=== PATIENT | female | born 1985 ===

== ENCOUNTER 2018-09-21 12:09 | Inpatient (IN) | payer OTHER ==
[~2018-09-21] VITALS: Ht 175.3 cm; Wt 133.4 kg
[2018-10-08] MEDS ORDERED: PRENATAL VITAM1 EAC2 (23:14)
== END 2018-10-12 14:02 | DRG 788 ==
LOC: OB/GYN 10-03 14:45 → LDR 10-08 22:54 → OB/GYN 10-08 22:54 → O/R 10-09 02:17 → OB/GYN 10-09 04:12
PROVIDERS: ADMIT Obstetrics & Gynecology
PROC: 4A1HXCZ Monitoring of Products of Conception, Cardiac Rate, External Approach (ICD-10-PCS; 2018-10-09)
PROC: 4A033R1 Measurement of Arterial Saturation, Peripheral, Percutaneous Approach (ICD-10-PCS; 2018-10-09)
PROC: 10D00Z1 Extraction of Products of Conception, Low, Open Approach (ICD-10-PCS; principal; 2018-10-09 08:30)
DX: O76 Abnormality in fetal heart rate and rhythm complicating labor and delivery (principal); Z3A.39 39 weeks gestation of pregnancy; Z37.0 Single live birth

== ENCOUNTER 2018-10-02 11:00 | Outpatient (CLI) | payer OTHER | END 2018-10-02 13:30 | disposition home or self-care (01) | LOC: OBS/DEL 11:00 | DX: O47.1 False labor at or after 37 completed weeks of gestation (principal); Z34.83 Encounter for supervision of other normal pregnancy, third trimester ==

== ENCOUNTER → 2018-10-08 | Outpatient (CLI) | payer OTHER ==
[~2018-10-08] MED LIST: PRENATAL VITAM1 EAC2
== END | disposition still patient (30) ==
LOC: OBS/DEL 19:49
DX: O47.1 False labor at or after 37 completed weeks of gestation (principal); Z34.83 Encounter for supervision of other normal pregnancy, third trimester

== ENCOUNTER 2021-11-12 10:45 | Inpatient (IN) | payer OTHER ==
[~2021-11-12] VITALS: Ht 175.3 cm; Wt 3.6 kg
[2021-11-15] MEDS ORDERED: FOLIC ACID20 MG PO (21:47)
[2021-11-15] MEDS ORDERED: IRON325 MG PO (21:47)
== END 2021-11-19 12:12 | disposition home or self-care (01) | DRG 785 ==
LOC: OB/GYN 11-16 18:22 → LDR 11-16 18:22 → OB/GYN 11-16 22:38 → SURH 11-17 09:10 → OB/GYN 11-19 12:12 → SURH 12-11 10:45
PROVIDERS: ADMIT Obstetrics & Gynecology; ATTEND Obstetrics & Gynecology
PROC: 0UB70ZZ Excision of Bilateral Fallopian Tubes, Open Approach (ICD-10-PCS; 2021-11-16)
PROC: 4A1HXCZ Monitoring of Products of Conception, Cardiac Rate, External Approach (ICD-10-PCS; 2021-11-16)
PROC: 10D00Z1 Extraction of Products of Conception, Low, Open Approach (ICD-10-PCS; principal; 2021-11-16 19:00)
DX: O34.211 Maternal care for low transverse scar from previous cesarean delivery (principal); Z3A.38 38 weeks gestation of pregnancy; Z37.0 Single live birth; Z20.822 Contact with and (suspected) exposure to COVID-19; Z30.2 Encounter for sterilization

== ENCOUNTER 2021-11-15 20:03 | Outpatient (CLI) | payer OTHER ==
[2021-11-15] MEDS ORDERED: IRON325 MG PO (21:47)
[2021-11-15] MEDS ORDERED: FOLIC ACID20 MG PO (21:47)
== END 2021-11-16 18:22 | disposition still patient (30) ==
LOC: OBS/DEL 20:03
PROVIDERS: ATTEND Obstetrics & Gynecology
DX: O26.893 Other specified pregnancy related conditions, third trimester (principal); R51.9 Headache, unspecified; R07.89 Other chest pain; Z3A.38 38 weeks gestation of pregnancy